=== PATIENT | male | born 1995 | race American Indian/Alaskan Native ===

== ENCOUNTER 2021-08-23 17:07 | Emergency (ER) | payer OTHER ==
[2021-08-23 22:50] VITALS: BP 147/90
--- NOTE | 2021-08-23 22:53 | Emergency Department Report ---
ED Male HPI - General Chief complaint: Urogenital-Male Stated complaint: STD TESTING Source: patient Mode of arrival: Ambulatory Limitations: No Limitations - History of Present Illness Initial comments: Patient is a 25-year-old -[place] male with no past medical history presented to the ED with complaint of acute onset persistent dysuria, urinary frequency and urgency and penile discharge for the last 3 days after having unprotected sexual intercourse about a week ago. Patient states that he has 2 sexual partners but insists on having protected sexual intercourse. Patient denies testicular pain, fever, chills, cough, sore throat, nausea and vomiting, diarrhea, abdominal pain or hematuria and back pain. MD Complaint: penile discharge, dysuria -: Sudden, days(s) (3) Location: penis Radiation: none Severity: severe Severity scale (0 -10): 7 Quality: aching, burning, sharp Consistency: constant Improves with: none Worsens with: urination, sexual intercourse denies other symptoms, discharge, dysuria. denies: swelling, mass, rash, urinary retention, blood in urine, fever, nausea/vomiting, incontinence, other - Related Data Sexually active: Yes (with multiple sexual partners) Previous Rx's Medication Instructions Recorded Last Taken Type Doxycycline Hyclate 100 mg PO Q12H #28 cap 08/23/21 Unknown Rx Allergies Allergy/AdvReac Type Severity Reaction Status Date / Time No Known Allergies Allergy Unverified 08/23/21 18:38 ED Review of Systems ROS: Stated complaint: STD TESTING Other details as noted in HPI Constitutional: denies: chills, fever Eyes: denies: eye pain, eye discharge, vision change ENT: denies: ear pain, throat pain Respiratory: denies: cough, shortness of breath, wheezing Cardiovascular: denies: chest pain, palpitations Endocrine: no symptoms reported Gastrointestinal: denies: abdominal pain, nausea, diarrhea Genitourinary: urgency, dysuria, frequency, discharge. denies: testicular pain, testicular mass, other Musculoskeletal: denies: back pain, joint swelling, arthralgia Skin: denies: rash, lesions Neurological: denies: headache, weakness, paresthesias Psychiatric: denies: anxiety, depression Hematological/Lymphatic: denies: easy bleeding, easy bruising ED Past Medical Hx - Past Medical History Previous Medical History?: No - Medications Home Medications: Home Medications Medication Instructions Recorded Confirmed Last Taken Type Doxycycline Hyclate 100 mg PO Q12H #28 cap 08/23/21 Unknown Rx ED Physical Exam - General Limitations: No Limitations General appearance: alert, in no apparent distress - Head Head exam: Present: atraumatic, normocephalic, normal inspection - Eye Eye exam: Present: normal appearance, PERRL, EOMI Pupils: Present: normal accommodation - ENT ENT exam: Present: normal exam, normal orophraynx, mucous membranes moist, TM's normal bilaterally, normal external ear exam - Neck Neck exam: Present: normal inspection, full ROM. Absent: tenderness - Respiratory Respiratory exam: Present: normal lung sounds bilaterally. Absent: respiratory distress, wheezes, rales, rhonchi, stridor, chest wall tenderness, accessory muscle use, decreased breath sounds, prolonged expiratory - Cardiovascular Cardiovascular Exam: Present: regular rate, normal rhythm, normal heart sounds. Absent: systolic murmur, diastolic murmur, rubs, gallop - GI/Abdominal GI/Abdominal exam: Present: soft, normal bowel sounds. Absent: tenderness, guarding, rebound, rigid, hyperactive bowel sounds, hypoactive bowel sounds, organomegaly, bruit - External exam: Present: other (Genital exam deferred at this time) - Extremities Exam Extremities exam: Present: normal inspection, full ROM, normal capillary refill - Back Exam Back exam: Present: normal inspection, full ROM. Absent: tenderness, CVA tenderness (R), CVA tenderness (L), muscle spasm, paraspinal tenderness, vertebral tenderness - Neurological Exam Neurological exam: Present: alert, oriented X3, CN II-XII intact, normal gait, reflexes normal - Psychiatric Psychiatric exam: Present: normal affect, normal mood - Skin Skin exam: Present: warm, dry, intact, normal color. Absent: rash ED Course Vital Signs 08/23/21 18:38 Temperature 98.9 F Pulse Rate 93 H Respiratory 18 Rate Blood Pressure 147/90 O2 Sat by Pulse 99 Oximetry ED Medical Decision Making - Medical Decision Making This is a 25-year-old -[place] male with no past medical history pres ented to the ED with complaint of acute onset persistent dysuria, urinary frequency and urgency and penile discharge for the last 3 days after having unprotected sexual intercourse about a week ago. Patient states that he has 2 sexual partners but insists on having protected sexual intercourse. In the ED, patient is alert and oriented x3 and is not in any distress. Urinalysis was ordered. Patient was treated in the ED empirically for suspected urethritis due to gonorrhea and chlamydia, and was treated in the ED with Rocephin 1 g intramuscular injection, and discharged home on doxycycline 100 mg every 12 hours for 14 days. Patient was advised to follow-up with the [facility] for further STD testing and treatment including HIV and syphilis. Patient was also encouraged to ensure that his sexual partners also get tested and treated. Patient was advised to return to the ED immediately if symptoms get worse. - Differential Diagnosis Urethritis Gonorrhea; Urethritis chlamydia; UTI; Other STD Critical care attestation.: If time is entered above; I have spent that time in minutes in the direct care of this critically ill patient, excluding procedure time. ED Disposition Clinical Impression: Urethritis, nonspecific, STD (sexually transmitted disease), Acute gonococcal urethritis Disposition: 01 HOME / SELF CARE / HOMELESS Is pt being admited?: No Does the pt Need Aspirin: No Condition: Stable Instructions: Urethritis, Adult, Gonorrhea, Gonococcal Urethritis (ED) Additional Instructions: Take medication with food, drink plenty fluids, follow-up with the [facility] department for further STD testing including HIV and syphilis. Ensure that your sexual partners also get treated for the STD, and ensure that you observe safe sexual practices. Prescriptions: Doxycycline Hyclate 100 mg PO Q12H #28 cap Referrals: [facility] [Outside] - 3-5 Days Forms: STI Treatment and Prevention Time of Disposition: 22:54 Print Language: [place]INGAPORE[place]
[2021-08-23 23:07] LABS: Bilirubin,Urine NEG (Negative); Blood,Urine NEG (Negative); Color,Urine Amber (Yellow); Mucus,Urine FEW /HPF; Protein,Urine <15 mg/dL mg/dL (Negative)
[2021-08-23] MEDS ORDERED: LIDOCAINE-MPF (1%) 10 MG/1 ML VIAL 5 ML INFILTRATI ONE (23:30)
== END 2021-08-24 | disposition home or self-care (01) ==
LOC: ED 17:07
DX: A54.01 Gonococcal cystitis and urethritis, unspecified (principal); A64 Unspecified sexually transmitted disease; Z79.899 Other long term (current) drug therapy
CPT/HCPCS: 81001; 96372; 99283; J0696; J3490